=== PATIENT | male | born 1975 | race Caucasian/White ===

== ENCOUNTER 2018-01-24 00:12 | Emergency (ER) | payer OTHER ==
[~2018-01-24] VITALS: Ht 185.4 cm; Wt 90.7 kg
[2018-01-24] MEDS ORDERED: HYDROCODONE-IB1 EAC3 PO (00:27)
[2018-01-24] MEDS ORDERED: PREDNISONE50 MG PO (00:29)
[2018-01-24] MEDS ORDERED: IBUPROFEN 800800 M1 PO (00:33)
== END 2018-01-24 00:45 | disposition home or self-care (01) ==
LOC: ER 00:12
DX: G89.29 Other chronic pain (principal); M54.42 Lumbago with sciatica, left side; F17.210 Nicotine dependence, cigarettes, uncomplicated; Z88.5 Allergy status to narcotic agent